=== PATIENT | female | born 1960 | race Caucasian/White ===

== ENCOUNTER → 2017-07-21 | Outpatient (CLI) | payer BC ==
[2015-04-06 12:57] VITALS: BP 119/59
[~2017-07-21] MED LIST: HYDR25TA9 PO; LEVO25TA4 PO; PANT40TA5 PO
--- NOTE | 2017-07-21 11:14 | RAD ---
DATE: 07/21/2017. EXAM: MAMMO JUSTIN SCREENING BILATERAL. HISTORY: Routine mammographic screening. COMPARISON: 07/01/2016. This study was interpreted with the benefit of Computerized Aided Detection (CAD). FINDINGS: The breast parenchyma is dense, which could reduce sensitivity of mammography. Breast parenchyma level density D.. There are no suspicious masses, microcalcifications or architectural distortion. Scattered calcifications are benign. The parenchymal pattern is stable. BI-RADS CATEGORY: 2 BENIGN FINDING(S). RECOMMENDED FOLLOW-UP: 12M 12 MONTH FOLLOW-UP. PQRS compliance statement: Patient information was entered into a reminder system with a target due date 07/21/2018 for the next mammogram. Mammography is a sensitive method for finding small breast cancers, but it does not detect them all and is not a substitute for careful clinical examination. A negative mammogram does not negate a clinically suspicious finding and should not result in delay in biopsying a clinically suspicious abnormality. "Our facility is accredited by the [employer] Mammography [employer]."
== END | disposition home or self-care (01) ==
LOC: MAMMO 07:57
PROVIDERS: ATTEND Family Medicine
DX: Z12.31 Encounter for screening mammogram for malignant neoplasm of breast (principal)
CPT/HCPCS: 77063; G0202; 77067

== ENCOUNTER → 2018-08-30 | Outpatient (CLI) | payer OTHER ==
[2015-04-06 12:57] VITALS: BP 119/59
[~2018-08-30] MED LIST changes: +HYDR-2145 PO; -HYDR25TA9 PO
--- NOTE | 2018-08-31 10:54 | RAD ---
DATE: 08/30/2018 10:00 AM EXAM: MAMMO JSUTIN SCREENING BILATERAL HISTORY: routine screening evaluation. COMPARISON: Prior mammographic imaging dating back to 06/22/2015 Bilateral CC and MLO views of the breasts were performed. Bilateral breast tomosynthesis was performed in CC and MLO projections. This study was interpreted with the benefit of Computerized Aided Detection (CAD ). Breast Density: The breast parenchyma is heterogeneously dense, which could reduce sensitivity of mammography. Breast parenchyma level C. FINDINGS: Benign calcifications are present. There is an asymmetry in the upper outer right breast approximately 7 cm from the nipple. No suspicious masses, microcalcifications or architectural distortion is present to suggest malignancy in the left breast. The visualized axillae are unremarkable. IMPRESSION: Right breast asymmetry, findings for which additional imaging is advised. BI-RADS CATEGORY: 0 INCOMPLETE: NEEDS ADDITIONAL IMAGING EVALUATION AND/OR PRIOR MAMMOGRAMS FOR COMPARISON. RECOMMENDED FOLLOW-UP: ADD ADDITIONAL IMAGING Additional imaging of the right breast is recommended with spot compression views in the CC and MLO projections and possibly ultrasound. PQRS compliance statement: Patient information was entered into a reminder system with a target due date -immediate recall for the next mammogram. Mammography is a sensitive method for finding small breast cancers, but it does not detect them all and is not a substitute for careful clinical examination. A negative mammogram does not negate a clinically suspicious finding and should not result in delay in biopsying a clinically suspicious abnormality. "Our facility is accredited by the [employer] Mammography [employer]." MARLOND
== END | disposition home or self-care (01) ==
LOC: MAMMO 07:51
PROVIDERS: ATTEND Family Medicine
DX: Z12.31 Encounter for screening mammogram for malignant neoplasm of breast (principal)
CPT/HCPCS: 77063; 77067

== ENCOUNTER → 2018-09-10 | Outpatient (CLI) | payer OTHER ==
[2015-04-06 12:57] VITALS: BP 119/59
--- NOTE | 2018-09-12 15:20 | RAD ---
DATE: 09/10/2018 12:15 PM EXAM: DIGITAL DIAGNOSTIC RT, BREAST RIGHT HISTORY: further evaluation of a finding noted on her most recent screening mammographic examination. On that examination a focal asymmetry was reported within the right breast COMPARISON: Prior mammographic imaging dating back to 06/22/2015 2-D full field ML view of the right breast and spot compression CC and MLO views of the right breast were obtained. This study was interpreted with the benefit of Computerized Aided Detection (CAD ). Breast Density: The breast parenchyma is heterogeneously dense, which could reduce sensitivity of mammography. Breast parenchyma level C. FINDINGS: On the spot compression views, the previously seen asymmetry within the right breast effaces and is not well delineated. However on the full field ML view a slightly nodular appearance is seen within the superior right breast. Therefore the use findings are further evaluated by ultrasound. ULTRASOUND FINDINGS: Targeted ultrasound of the right breast 11:30 position, 6 cm from the nipple: Dense parenchymal tissue of normal echotexture is present. IMPRESSION: No mammographic evidence of malignancy. The findings on prior mammography are likely from dense breast tissue. BI-RADS CATEGORY: 2 BENIGN FINDING(S) RECOMMENDED FOLLOW-UP: 12M 12 MONTH FOLLOW-UP Annual screening mammography is recommended, unless clinically indicated sooner based on symptoms or change in physical exam. PQRS compliance statement: Patient information was entered into a reminder system with a target due date 08/30/2019 for the next mammogram. Mammography is a sensitive method for finding small breast cancers, but it does not detect them all and is not a substitute for careful clinical examination. A negative mammogram does not negate a clinically suspicious finding and should not result in delay in biopsying a clinically suspicious abnormality. "Our facility is accredited by the [employer] Mammography [employer]." MTDD
== END | disposition home or self-care (01) ==
LOC: MAMMO 10:10
PROVIDERS: ATTEND Family Medicine
DX: R92.8 Other abnormal and inconclusive findings on diagnostic imaging of breast (principal); N63.11 Unspecified lump in the right breast, upper outer quadrant
CPT/HCPCS: 76641; 77065

== ENCOUNTER → 2019-09-05 | Outpatient (CLI) | payer OTHER ==
[2015-04-06 12:57] VITALS: BP 119/59
--- NOTE | 2019-09-05 16:28 | RAD ---
DATE: 09/05/2019. EXAM: MAMMO JUSTIN SCREENING BILATERAL. HISTORY: Routine mammographic screening. COMPARISON: 08/30/2018. This study was interpreted with the benefit of Computerized Aided Detection (CAD). FINDINGS: Breast Density: HETERO The breast parenchyma is heterogenously dense, which could reduce sensitivity of mammography. Breast parenchyma level C.. There are no suspicious masses, microcalcifications or architectural distortion. Scattered calcifications are benign. The parenchymal pattern is stable. BI-RADS CATEGORY: 2 BENIGN FINDING(S). RECOMMENDED FOLLOW-UP: 12M 12 MONTH FOLLOW-UP. PQRS compliance statement: Patient information was entered into a reminder system with a target due date 09/05/2020 for the next mammogram. Mammography is a sensitive method for finding small breast cancers, but it does not detect them all and is not a substitute for careful clinical examination. A negative mammogram does not negate a clinically suspicious finding and should not result in delay in biopsying a clinically suspicious abnormality. "Our facility is accredited by the [employer] Mammography [employer]."
== END | disposition home or self-care (01) ==
LOC: MAMMO 07:56
PROVIDERS: ATTEND Specialist
DX: Z12.31 Encounter for screening mammogram for malignant neoplasm of breast (principal); N64.89 Other specified disorders of breast
CPT/HCPCS: 77063; 77067

== ENCOUNTER → 2019-09-30 | Outpatient (CLI) | payer OTHER ==
[2015-04-06 12:57] VITALS: BP 119/59
--- NOTE | 2019-09-30 18:08 | RAD ---
Examination: PELVIS History: Pelvic pain for 6 months Comparison/Correlation: None Findings: Frontal view the pelvis was obtained. The sacroiliac joints and hip joints are symmetric. No fracture or bone destruction. Soft tissues are unremarkable. No significant degenerative change for the patient's age. Impression: No suspicious process. Consider further imaging if occult process is a persistent concern. Electronically signed by: Vikram Duong MD (09/30/2019 6:05 PM) [facility]
== END | disposition home or self-care (01) ==
LOC: DXRAD 11:12
PROVIDERS: ATTEND Specialist
DX: R10.2 Pelvic and perineal pain (principal)
CPT/HCPCS: 72170

== ENCOUNTER → 2020-02-12 | Outpatient (CLI) | payer OTHER ==
[2015-04-06 12:57] VITALS: BP 119/59
[~2020-02-12] MED LIST changes: -PANT40TA5 PO; +PANT40TA6 PO
--- NOTE | 2020-02-12 13:48 | RAD ---
KNEE LEFT 2V DATE: 02/12/2020 12:00 AM INDICATION: Reason: LEFT KNEE PAIN / Spl. Instructions: / History: COMPARISON: None. FINDINGS: Bones: There is no evidence of acute fracture or dislocation. Joints: Moderate medial compartment degenerative changes, mild in the lateral and patellofemoral compartment. There is no joint effusion. Miscellaneous: None. IMPRESSION: Tricompartmental degenerative changes, worst and moderate in the medial compartment. Electronically signed by: Kenton Jones MD (02/12/2020 1:45 PM) [facility]
--- NOTE | 2020-02-12 13:49 | RAD ---
LUMBAR SPINE MIN 4V DATE: 02/12/2020 12:00 AM INDICATION: Reason: BACK PAIN / Spl. Instructions: / History: COMPARISON: None. FINDINGS: Five non-rib bearing lumbar-type vertebral bodies are present. Bones/Alignment: No evidence of acute compression fracture. There is no listhesis. Joints: Mild multilevel degenerative disc disease. Lower lumbar facet arthropathy. Miscellaneous: None. IMPRESSION: Mild lumbar spondylosis Electronically signed by: Kenton Jones MD (02/12/2020 1:46 PM) [facility]
== END | disposition home or self-care (01) ==
LOC: PMG 11:23
PROVIDERS: ATTEND Physician Assistant Medical
DX: M47.896 Other spondylosis, lumbar region (principal); M25.562 Pain in left knee; M51.36 Other intervertebral disc degeneration, lumbar region; M17.12 Unilateral primary osteoarthritis, left knee; M12.88 Other specific arthropathies, not elsewhere classified, other specified site
CPT/HCPCS: 72110; 73560

== ENCOUNTER → 2020-10-03 | Outpatient (CLI) | payer OTHER ==
[2015-04-06 12:57] VITALS: BP 119/59
--- NOTE | 2020-10-03 10:11 | RAD ---
Exam performed: 2 views of the chest. Indication: Reason: PRE-OP / Spl. Instructions: / History: Date of Service: 10/03/2020 10:01 AM . Comparison : None available Findings: PA and lateral radiographs of the chest reveal a normal cardiomediastinal contour. The lungs are lindsey r. No pleural fluid is seen. The visualized osseous structures are unremarkable. Impression: No acute cardiopulmonary process seen. Electronically signed by: Jessica Beard MD (10/03/2020 10:09 AM) [id number]
--- NOTE | 2020-10-03 14:26 | EKG ---
[facility] ED [facility] [address] [place] [id number] Test Date: 2020-10-03 Test Time: 10:09:43 Pat Name: SHEYLA NIEVES Department: Room: Gender: F Stump Blower: : 1960 Requested By: ELIO HOUSTON Order Number: [id number] Reading MD: Measurements Intervals [place] Rate: 103 P: 39 ID: [id number] QRS: -8 QRSD: 80 T: 28 QT: 306 QTc: 403 Interpretive Statements SINUS TACHYCARDIA LEFT ATRIAL ABNORMALITY LEFTWARD AXIS R-S TRANSITION ZONE IN V LEADS DISPLACED TO THE LEFT ABNORMAL ECG RI6.02 No previous ECG available for comparison
== END ==
LOC: DXRAD 09:45
PROVIDERS: ATTEND Physician Assistant Medical
DX: Z01.818 Encounter for other preprocedural examination (principal); R00.0 Tachycardia, unspecified; R94.31 Abnormal electrocardiogram [ECG] [EKG]
CPT/HCPCS: 71046; 93005

== ENCOUNTER → 2020-10-27 | Outpatient (CLI) | payer OTHER ==
[2015-04-06 12:57] VITALS: BP 119/59
[2020-10-27 15:28] LABS: BASO % 0 % (0-3); EOS % 1 % (0-3); HEMATOCRIT 33.9 % (36.0-47.0); LYMPH # 1.8 x10^3/uL (1.0-4.8); LYMPH % 23 % (24-48); MEAN CORPUSCULAR HEMOGLOBIN 28 pg (25-35); MEAN CORPUSCULAR HGB CONC 33 g/dL (31-37); MEAN CORPUSCULAR VOLUME 87 fL (79-100); MONO # 0.5 x10^3/uL (0.0-1.1); MONO % 6 % (0-9); NEUT # 5.5 x10^3uL (1.8-7.7); NEUT % 70 % (31-73); PLATELET COUNT 544 x10^3/uL (140-400); RED BLOOD COUNT 3.91 x10^6/uL (3.50-5.40); RED CELL DISTRIBUTION WIDTH 15.5 % (11.5-14.5); WHITE BLOOD COUNT 7.9 x10^3/uL (4.0-11.0)
== END ==
LOC: LAB 14:33
PROVIDERS: ATTEND Physician Assistant Medical
DX: Z01.818 Encounter for other preprocedural examination (principal)
CPT/HCPCS: 36415; 85025

== ENCOUNTER → 2021-03-26 | Outpatient (CLI) | payer OTHER ==
[2015-04-06 12:57] VITALS: BP 119/59
--- NOTE | 2021-03-26 17:04 | RAD ---
EXAMINATION: MG BILAT SCREEN+JUSTIN CLINICAL HISTORY: Screening TECHNIQUE: Digital craniocaudal and mediolateral oblique views of the bilateral breasts obtained with 3-D tomosynthesis. COMPARISON: 09/05/2019, 08/30/2018, 07/21/2017 BREAST COMPOSITION: The breasts are heterogeneously dense, which may obscure small masses. FINDINGS: No evidence of suspicious mass, calcifications, or areas of architectural distortion. IMPRESSION: No mammographic evidence of malignancy. BI-RADS ASSESSMENT: Category 1: Negative RECOMMENDATION: Return for routine bilateral screening mammogram in one year. PQRS compliance statement - Patient information was entered into a reminder system with a target due date for the next mammogram. "Our facility is accredited by the [employer] Mammography Program." Electronically signed by: Sarmad Ordaz DO (03/26/2021 5:01 PM) [id number]
== END ==
LOC: MAMMO 08:33
PROVIDERS: ATTEND Physician Assistant Medical
DX: Z12.31 Encounter for screening mammogram for malignant neoplasm of breast (principal)
CPT/HCPCS: 77063; 77067